=== PATIENT | female | born 1990 | race Caucasian/White ===

== ENCOUNTER 2019-12-31 01:01 | Emergency (ER) | payer BC ==
[2019-12-31] MEDS ORDERED: Acetaminophen 500 MG Tab PO ONE (01:24)
[2019-12-31] MEDS ORDERED: Bupivacaine 0.5% 30 ML SDV INFILT ONE (01:25)
[2019-12-31] MEDS ORDERED: Bupivacaine 0.5% 10 ML SDV ONE (01:34)
[2019-12-31] MEDS ORDERED: Bupivacaine 0.5% 10 ML SDV INJECT ONE (01:37)
[2019-12-31] MEDS ORDERED: Diphtheria,Pertussis(Acell),Tetanus Vaccine 0.5 ML Syringe IM ONE (01:43)
--- NOTE | 2019-12-31 02:41 | CT ---
INDICATION: Trauma, forehead laceration TECHNIQUE: CT head without contrast. COMPARISON: None FINDINGS: CSF spaces: Within normal limits for age. Brain parenchyma: The mosqueda-white differentiation is normal. No sign of mass, hemorrhage, or midline shift. Skull base and calvarium: The visualized paranasal sinuses and mastoid air cells demonstrate no acute or significant findings. The visualized orbits are grossly unremarkable. No skull fractures. The frontal scalp laceration. IMPRESSION: The frontal scalp laceration with no associated fractures or evidence of acute intracranial trauma. Dictated by Eran Almanza MD @ 12/31/2019 2:41:04 AM Please note that all CT scans at this facility use dose modulation, iterative reconstruction, and/or weight-based dosing when appropriate to reduce radiation dose to as low as reasonably achievable. Dictated by: Eran Almanza MD @ 12/31/2019 02:41:10 (Electronically Signed)
--- NOTE | 2019-12-31 03:46 | EDM.PDOC ---
ED HPI GENERAL MEDICAL PROBLEM - General Chief Complaint: Laceration Stated Complaint: AMB Time Seen by Provider: 12/31/19 01:04 Source of Information: Reports: Patient, EMS History Limitations: Reports: Intoxication - History of Present Illness INITIAL COMMENTS - FREE TEXT/NARRATIVE: 29-year-old female with no pertinent past medical history presenting with intoxication and head trauma. Brought into the ED by EMS after reportedly falling at a bar. Patient reportedly fell off a barstool after drinking alcohol. Unknown if loss of consciousness occurred. Complained of nausea during the ambulance ride. Arrives to the emergency department complaining of a laceration to the left side of her forehead. No other complaints. Patient is not oriented to event. head Pain Score (Numeric/FACES): 7 - Related Data Allergies Allergy/AdvReac Type Severity Reaction Status Date / Time No Known Allergies Allergy Verified 12/31/19 01:05 Home Meds: Home Meds . [No Known Home Meds] 12/31/19 [History] Past Medical History - Past Health History Medical/Surgical History: Denies Medical/Surgical History HEENT History: Reports: None Cardiovascular History: Reports: None Respiratory History: Reports: None Gastrointestinal History: Reports: None Genitourinary History: Reports: None HOSE FINISHER History: Reports: None Musculoskeletal History: Reports: None Neurological History: Reports: None Psychiatric History: Reports: None Endocrine/Metabolic History: Reports: None Hematologic History: Reports: None Immunologic History: Reports: None Dermatologic History: Reports: None - Infectious Disease History Infectious Disease History: Reports: Chicken Pox Social & Family History - Family History Family Medical History: Noncontributory - Tobacco Use Smoking Status *Q: Current Every Day Smoker Years of Tobacco use: 1 Packs/Tins Daily: 1 - Recreational Drug Use Recreational Drug Use: No ED ROS GENERAL - Review of Systems Review Of Systems: See Below Reason Not Obtained: Intoxication/altered mental status Skin: Reports: Wound ED EXAM, SKIN/RASH Exam: See Below Text/Narrative:: Vital signs reviewed. Nursing notes reviewed. Constitutional: Awake, alert, non-distressed. Head: 3.5 centimeter linear laceration to the left side of the forehead Eyes: EOMI, conjunctiva normal, no discharge, no scleral icterus. Ears, Nose, Throat: External ears and ears normal, moist oral mucosa. Cardiovascular: 2+ radial pulse, capillary refill less than 2 seconds. Pulmonary: normal work of breathing, no accessory muscle use. Abdomen/GI: Soft, nontender, nondistended, no guarding or rigidity, no masses. Musculoskeletal: No deformities. Integumentary: Appropriate color for ethnicity, warm, dry, no pallor or jaundice , no rash. Neurologic: Awake, oriented to self, place, time, but not to event. Exhibits some repetitive questioning. Moving all extremities well. Slurred speech, no facial droop. Psychiatric: Inappropriate judgement. ED SKIN PROCEDURES - Laceration/Wound Repair Left Anterior Face Appearance: Superficial Distal NVT: Neuro & Vascular Intact Anesthetic Type: Local Local Anesthesia - Bupivicaine (Marcaine): 0.5% Plain Local Anesthetic Volume: 3cc Skin Prep: Saline Exploration/Debridement/Repair: Wound Explored, In a Bloodless Field, No Foreign Material Found Closed with: Sutures Lac/Wound length In cm: 3 Suture Size: 4-0 # of Sutures: 6 Tetanus Status Addressed: Yes Complications: No Course - Vital Signs Text/Narrative:: Patient hemodynamically stable, initially tachycardic, afebrile, well-appearing , looks nontoxic. Differential diagnosis includes but is not limited to: Intracranial hemorrhage, cerebral contusion, subarachnoid hemorrhage, skull fracture, etc. Exhibited slurred speech and inappropriate judgment, consistent with report of alcohol intoxication. Underwent noncontrast head CT, with no acute intracranial findings. Tetanus booster given, then the patient underwent laceration repair as detailed in procedure note. This was tolerated well. Patient was monitored for a period of several hours in the emergency department. Her mental status improved towards clinical sobriety. Her presentation seems consistent with ethanol intoxication, as reported. She has 2 friends in attendance who are interested in taking her home. They seem clinically sober and state they will stay with the patient tonight to monitor her. I provided very strict return precautions for any change in condition to bring her back to the emergency department or call 911. The patient and her friends both voiced understanding of my instructions. Patient is stable to discharge home with outpatient primary care follow-up. Strict emergency department return precautions were provided, patient indicated understanding. All questions were answered prior to departure. Discharged in good condition. Last Recorded V/S: Last Vital Signs Temp 35.9 C L 12/31/19 01:05 Pulse 97 12/31/19 04:00 Resp 18 12/31/19 04:00 BP 125/80 12/31/19 04:00 Pulse Ox 97 12/31/19 04:00 - Orders/Labs/Meds Orders: Active Orders 24 hr Category Date Time Status Procedure Tray at Bedside [RC] ASDIRECTED Care 12/31/19 01:25 Active Vaccines to be Administered [RC] PER UNIT ROUTINE Care 12/31/19 01:43 Active Labs: Laboratory Tests 12/31/19 Range/Units 02:07 Urine HCG, Qual NEGATIVE (NEGATIVE) Meds: Medications Discontinued Medications Generic Name Dose Route Start Last Admin Trade Name Freq PRN Reason Stop Dose Admin Acetaminophen 1,000 mg 12/31/19 01:24 12/31/19 01:38 Tylenol Extra Strength PO 12/31/19 01:25 1,000 mg ONETIME ONE Administration Bupivacaine HCl 10 ml 12/31/19 01:25 12/31/19 01:38 Marcaine 0.5% INFILT 12/31/19 01:26 Not Given ONETIME ONE Bupivacaine HCl Confirm 12/31/19 01:34 12/31/19 01:38 Sensorcaine-Mpf 0.5% Administered 12/31/19 01:35 Not Given Dose 10 ml .ROUTE .STK-MED ONE Bupivacaine HCl 10 ml 12/31/19 01:37 12/31/19 01:38 Sensorcaine-Mpf 0.5% INJECT 12/31/19 01:38 10 ml ONETIME ONE Administration Diphtheria/Tetanus/Acell Pertussis 0.5 ml 12/31/19 01:43 12/31/19 01:45 Adacel IM 12/31/19 01:44 0.5 ml .ONCE ONE Administration Departure - Departure Time of Disposition: 04:54 Disposition: Home, Self-Care 01 Condition: Good Clinical Impression: Alcoholic intoxication with complication Laceration of forehead Qualifiers: Encounter type: initial encounter Qualified Code(s): S01.81XA - Laceration without foreign body of other part of head, initial encounter - Discharge Information *PRESCRIPTION DRUG MONITORING PROGRAM REVIEWED*: Not Applicable *COPY OF PRESCRIPTION DRUG MONITORING REPORT IN PATIENT GERTRUDIS: Not Applicable Instructions: Binge-Drinking Information, Adult, Laceration Care, Adult, Sutured Wound Care Referrals: [facility] - [facility] [Provider Group] - 1 Week (As needed) Forms: ED Department Discharge Additional Instructions: Your sutures need to be removed in 5 to 7 days. You can return to the emergency department to have this done. Take [id number] acetaminophen or ibuprofen as needed for pain. Return to the emergency department immediately for severe headache, confusion, vomiting, vision changes, or any other concerns. The following information is given to patients seen in the emergency department who are being discharged to home. This information is to outline your options for follow-up care. We provide all patients seen in our emergency department with a follow-up referral. The need for follow-up, as well as the timing and circumstances, are variable depending upon the specifics of your emergency department visit. If you don't have a primary care physician on staff, we will provide you with a referral. We always advise you to contact your personal physician following an emergency department visit to inform them of the circumstance of the visit and for follow-up with them and/or the need for any referrals to a consulting specialist. The emergency department will also refer you to a specialist when appropriate. This referral assures that you have the opportunity for follow-up care with a specialist. All of these measure are taken in an effort to provide you with optimal care, which includes your follow-up. Under all circumstances we always encourage you to contact your private physician who remains a resource for coordinating your care. When calling for follow-up care, please make the office aware that this follow-up is from your recent emergency room visit. If for any reason you are refused follow-up, please contact the [facility] Emergency Department at and asked to speak to the emergency department charge nurse. If you do not have a primary care physician that is caring for you, you can contact these clinics below to set up an appointment to establish care: [facility] - Primary [facility] [address] [place] [id number] [address] Sepsis Event Note - Evaluation Sepsis Screening Result: No Definite Risk - Focused Exam Vital Signs: Vital Signs Temp Pulse Resp BP Pulse Ox 12/31/19 04:00 97 18 125/80 97 12/31/19 03:00 110 H 114/72 96 12/31/19 02:30 89 18 122/80 98 12/31/19 01:05 35.9 C L 111 H 18 134/87 97 Date Exam was Performed: 12/31/19 Time Exam was Performed: 07:23 - My Orders Last 24 Hours: My Active Orders 12/31/19 01:25 Procedure Tray at Bedside [RC] ASDIRECTED 12/31/19 01:43 Vaccines to be Administered [RC] PER UNIT ROUTINE - Assessment/Plan Last 24 Hours: My Active Orders 12/31/19 01:25 Procedure Tray at Bedside [RC] ASDIRECTED 12/31/19 01:43 Vaccines to be Administered [RC] PER UNIT ROUTINE
[2019-12-31 07:09] VITALS: BP 125/80; PULSE 97
== END 2019-12-31 05:09 | disposition home or self-care (01) ==
LOC: MW.ED 01:01
DX: S01.81XA Laceration without foreign body of other part of head, initial encounter (principal); F10.129 Alcohol abuse with intoxication, unspecified; Z23 Encounter for immunization; F17.210 Nicotine dependence, cigarettes, uncomplicated; W01.10XA Fall on same level from slipping, tripping and stumbling with subsequent striking against unspecified object, initial encounter
CPT/HCPCS: 12013; 70450; 81025; 90471; 90715; 99284; A9270; J3490; 99282